=== PATIENT | female | born 1955 | race Two or more races ===

== ENCOUNTER 2018-02-05 13:23 | Emergency (ER) | payer OTHER ==
--- NOTE | 2018-02-05 13:55 | EDM.PDOC ---
ED HPI GENERAL MEDICAL PROBLEM - General Chief Complaint: Respiratory Problem Stated Complaint: COUGH AND BACK PAIN Time Seen by Provider: 02/05/18 13:53 Source of Information: Reports: Patient - History of Present Illness INITIAL COMMENTS - FREE TEXT/NARRATIVE: HISTORY AND PHYSICAL: History of present illness: [As was sinus pain and pressure supraorbital sinuses right greater than left she also has sensation of a plugged ear on the right with decreased hearing been increasing over the last 4 days She is in no distress denies fever nausea vomiting chills sweats she does have cough worse while laying down has kept her awake last night , no chest pain shortness of breath headache dizziness palpitation no bowel or urine symptoms she also has a secondary complaint of 2 out of 10 paraspinous muscle pain worse with cough at her own she is not coughing and can reproduce symptoms with movement of her right arm 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 Past medical history: As per history of present illness and as reviewed below otherwise noncontributory. Surgical history: As per history of present illness and as reviewed below otherwise noncontributory. Social history: No reported history of drug or alcohol abuse. Family history: As per history of present illness and as reviewed below otherwise noncontributory. Physical exam: HEENT: Atraumatic, normocephalic, pupils reactive, negative for conjunctival pallor or scleral icterus, mucous membranes moist, throat clear, neck supple, nontender, trachea midline. supraorbital sinus tenderness right greater than left no meningeal sign Lungs: Clear to auscultation, breath sounds equal bilaterally, chest nontender. Heart: S1S2, regular, negative for clicks, rubs, or JVD. Abdomen: Soft, nondistended, nontender. Negative for masses or hepatosplenomegaly. Negative for costovertebral tenderness. Pelvis: Stable nontender. Genitourinary: Deferred. Rectal: Deferred. Extremities: Atraumatic, negative for cords or calf pain. Neurovascular unremarkable. Neuro: Awake, alert, oriented. Cranial nerves II through XII unremarkable. Cerebellum unremarkable. Motor and sensory unremarkable throughout. Exam nonfocal. Diagnostics: [Chest 2 views ] Therapeutics: [Rocephin 1 g IM Z-Saji 250 mg dosing The counter symptomatic therapy discussed ] Impression: [ sinusitis ] Definitive disposition and diagnosis as appropriate pending reevaluation and review of above. back Pain Score (Numeric/FACES): 5 - Related Data Allergies Allergy/AdvReac Type Severity Reaction Status Date / Time No Known Allergies Allergy Verified 02/05/18 13:49 Home Meds: Home Meds ALPRAZolam [Alprazolam] 0.25 mg PO DAILY 02/05/18 [History] Insulin NPH Hum/Reg Insulin Hm [Humulin 70/30 Kwikpen] 02/05/18 [History] Levothyroxine 25 mcg PO ACBREAKFAST 02/05/18 [History] Losartan Potassium 50 mg PO DAILY 02/05/18 [History] metFORMIN HCl [Metformin HCl] 1,000 mg PO BID 02/05/18 [History] ED ROS GENERAL - Review of Systems Review Of Systems: See Below ED EXAM, GENERAL - Physical Exam Exam: See Below Course - Vital Signs Last Recorded V/S: Last Vital Signs Temp 96.2 F 02/05/18 13:52 Pulse 102 H 02/05/18 13:52 Resp 18 02/05/18 13:52 BP 106/73 02/05/18 13:52 Pulse Ox 97 02/05/18 13:52 - Orders/Labs/Meds Orders: Active Orders 24 hr Category Date Time Status Chest 2V [CR] Stat Exams 02/05/18 13:32 Taken cefTRIAXone [Rocephin] 1,000 mg Med 02/05/18 14:15 Ordered Lidocaine 1% [Xylocaine-MPF 1%] 4 ml IM ONETIME Departure - Departure Time of Disposition: 14:15 Disposition: Home, Self-Care 01 Condition: Good Clinical Impression: Sinusitis - Discharge Information Referrals: PCP,None [Primary Care Provider] - Forms: ED Department Discharge Additional Instructions: The following information is given to patients seen in the emergency department who are being discharged to home. This information is to outline your options for follow-up care. We provide all patients seen in our emergency department with a follow-up referral. The need for follow-up, as well as the timing and circumstances, are variable depending upon the specifics of your emergency department visit. If you don't have a primary care physician on staff, we will provide you with a referral. We always advise you to contact your personal physician following an emergency department visit to inform them of the circumstance of the visit and for follow-up with them and/or the need for any referrals to a consulting specialist. The emergency department will also refer you to a specialist when appropriate. This referral assures that you have the opportunity for follow-up care with a specialist. All of these measure are taken in an effort to provide you with optimal care, which includes your follow-up. Under all circumstances we always encourage you to contact your private physician who remains a resource for coordinating your care. When calling for follow-up care, please make the office aware that this follow-up is from your recent emergency room visit. If for any reason you are refused follow-up, please contact the [facility] emergency department at and asked to speak to the emergency department charge nurse. - My Orders Last 24 Hours: My Active Orders 02/05/18 13:32 Chest 2V [CR] Stat 02/05/18 14:15 cefTRIAXone [Rocephin] 1,000 mg Lidocaine 1% [Xylocaine-MPF 1%] 4 ml IM ONETIME - Assessment/Plan Last 24 Hours: My Active Orders 02/05/18 13:32 Chest 2V [CR] Stat 02/05/18 14:15 cefTRIAXone [Rocephin] 1,000 mg Lidocaine 1% [Xylocaine-MPF 1%] 4 ml IM ONETIME
[2018-02-05] MEDS ORDERED: cefTRIAXone 1,000 MG in Lidocaine 1% 4 ML IM ONE (14:15)
--- NOTE | 2018-02-06 10:13 | CR ---
EXAM DATE: 02/05/18 PATIENT'S AGE: 62 Patient: JOSE ANGEL MENG Facility: [place], [place] Site . Site : [id number] Study: XRay Chest [id number] 2:09:45 PM Ordering Physician: Nakita Falcon Final Report: INDICATION: Chest pain and shortness of breath TECHNIQUE: Chest 2 views COMPARISON: None FINDINGS: Cardiovascular and mediastinum: Heart size and vasculature are normal in caliber and appearance. Right chest port catheter is present. Lungs and pleural spaces: Lungs are clear. No sign of infiltrate or mass. No sign of pleural effusion. No pneumothorax. Bones and soft tissues: No significant findings. IMPRESSION: No acute or significant findings. Dictated by Rogers Santiago MD @ Feb 05 2018 2:18PM (Electronic Signature) Report Signed by Proxy. DARBY
== END 2018-02-05 15:16 | disposition home or self-care (01) ==
LOC: MW.ED 13:23
DX: J32.9 Chronic sinusitis, unspecified (principal)
CPT/HCPCS: 71046; 96372; 99283; J0696; J2001; 99282